=== PATIENT | female | born 1975 | race Two or more races ===

== ENCOUNTER 2017-04-07 12:01 | Inpatient (IN) | payer SELFPAY ==
[~2017-04-07] VITALS: Ht 149.9 cm; Wt 56.7 kg
--- NOTE | 2017-04-07 12:38 | NUR ---
PT BIB SELF C/O SEVERE VB AND L SIDED PELVIC PAIN X3 DAYS. LMP 03/24/17. A2. DEENIES CHANCE OF . NONTENDER TO PALP. REPORTS HX OF L OVARIAN CYST. RESP EVNE ULABORED. SKIN WARM NONDIAPHORETIC. PT APPEARS IN SEVERE PAIN, GROANING AND GUARDING. IN ER BED 21.
[2017-04-07 13:00] LABS: BASOPHILS # (AUTO) 0.1 /CMM (0.0-0.2); BASOPHILS % (AUTO) 1.3 % (0.0-2.0); EOSINOPHILS # (AUTO) 0.1 /CMM (0.0-0.7); EOSINOPHILS % (AUTO) 1.9 % (0.0-6.0); HEMATOCRIT 41 % (33-45); HEMOGLOBIN 13.8 g/dL (11.5-14.8); LYMPHOCYTES # (AUTO) 2.3 /CMM (0.8-4.8); LYMPHOCYTES % (AUTO) 35.2 % (20.0-44.0); MEAN CORPUSCULAR HEMOGLOBIN 31 PG (26.0-33.0); MEAN CORPUSCULAR HGB CONC 34 g/dl (31.0-36.0); MEAN CORPUSCULAR VOLUME 90 fL (82-100); MONOCYTES # (AUTO) 0.6 /CMM (0.1-1.30); MONOCYTES % (AUTO) 8.9 % (2.0-12.0); NEUTROPHILS # (AUTO) 3.3 /CMM (1.8-8.9); NEUTROPHILS % (AUTO) 52.7 % (43.0-81.0); PLATELET COUNT (AUTO) 296 /CMM (150-450); RDW COEFFICIENT OF VARIATION 12.8 (11.5-15.0); RED BLOOD CELL COUNT(AUTO) 4.53 MIL/uL (4.0-5.2); WHITE BLOOD COUNT (AUTO) 6.4 K/uL (4.3-11.0)
[2017-04-07] MEDS ORDERED: ONDANSETRON HCL/PF 4 MG/2 ML VIAL IVP ONE ×2 (13:00→17:00)
[2017-04-07] MEDS ORDERED: MORPHINE SULFATE INJ 2 MG/ML DISP.SYRIN IV ONE (13:00)
[2017-04-07] MEDS ORDERED: IV NS 0.9% 1,000 ML BAG IV ONE (13:00)
--- NOTE | 2017-04-07 13:05 | NUR ---
US TECH AT BEDSIDE
[2017-04-07] MEDS ORDERED: MORPHINE SULFATE INJ 4 MG/ML DISP.SYRIN ONE (13:10)
[2017-04-07] MEDS ORDERED: IV SET PRIMARY 1 EA INFUS.SET MC ONE ×2 (13:10→14:34)
[2017-04-07] MEDS ORDERED: ONDANSETRON HCL/PF 4 MG/2 ML VIAL ONE ×2 (13:10→15:59)
[2017-04-07] MEDS ORDERED: IV NS 0.9% 1,000 ML ONE (13:10)
[2017-04-07 13:18] LABS: CALCIUM, SERUM 8.5 mg/dL (8.5-10.1); CREATININE 0.6 mg/dL (0.6-1.3); POTASSIUM 3.7 mmol/L (3.5-5.1)
[2017-04-07 13:29] LABS: INR 0.92 (0.87-1.13); PROTHROMBIN TIME 9.6 SECS (9.5-12.7)
[2017-04-07 13:32] LABS: APPEARANCE,URINE TURBID (CLEAR); BILIRUBIN,URINE NEGATIVE (NEGATIVE); BLOOD, URINE 3+ Ery/uL (NEGATIVE); COLOR,URINE RED (YELLOW); KETONES,URINE 1+ (NEGATIVE); LEUKOCYTE ESTERASE ,URINE 2+ (NEGATIVE); NITRITE, URINE POSITIVE (NEGATIVE); PH,URINE 6.5 (5.0-8.0); PROTEIN,URINE 3+ mg/dl (NEGATIVE); UGLUCOSE 1+ mg/dL (NEGATIVE)
[2017-04-07 13:40] LABS: RBC,URINE TOO NUMEROUS TO COUN /HPF (0-2)
[2017-04-07 13:41] LABS: ADD URINE CULTURE YES; BACTERIA,URINE Rare /HPF (None Seen); SQUAMOUS EPITHELIAL CELL,UR Few /HPF (None Seen)
[2017-04-07] MEDS ORDERED: CEFTRIAXONE 1GM BAG (ER ONLY) 1 GM/50 ML PIGGYBACK IV ONE (14:00)
[2017-04-07] MEDS ORDERED: HYDROMORPHONE 1 MG/1 ML DISP.SYRIN ONE ×2 (14:03→15:59)
--- NOTE | 2017-04-07 14:12 | NUR ---
PT APPEARS IN SEVERE PAIN, MOANING AND CRYING, GUARDING. ARCHITECTURAL DESIGN LECTURER NOTIFIED. ORDER FOR DILAUDID 0.5MG IVP RECEIVED AND ADMINISTERED.
--- NOTE | 2017-04-07 14:18 | NUR ---
NO AT BEDSIDE FOR PELVIC EXAM
[2017-04-07] MEDS ORDERED: METRONIDAZOLE 500 MG TABLET PO ONE (14:30)
[2017-04-07] MEDS ORDERED: HYDROMORPHONE 1 MG/1 ML DISP.SYRIN IV ONE ×2 (14:30→16:00)
[2017-04-07] MEDS ORDERED: AZITHROMYCIN 250 MG TABLET PO ONE (14:30)
[2017-04-07] MEDS ORDERED: METRONIDAZOLE 500 MG TABLET ONE (14:33)
[2017-04-07] MEDS ORDERED: AZITHROMYCIN 250 MG TABLET ONE (14:33)
[2017-04-07] MEDS ORDERED: CEFTRIAXONE 1GM BAG (ER ONLY) 50 ML IV ONE (14:34)
[2017-04-07] MEDS ORDERED: KETOROLAC TROMETHAMINE INJ 30 MG/ML VIAL ONE (14:34)
[2017-04-07 14:57] LABS: HEMOGLOBIN 12.5 g/dL (11.5-14.8)
[2017-04-07] MEDS ORDERED: KETOROLAC TROMETHAMINE INJ 30 MG/ML VIAL IV ONE (15:00)
--- NOTE | 2017-04-07 15:04 | NUR ---
PT TRANSPORTED TO CT IN STABLE CONDITION
--- NOTE | 2017-04-07 15:19 | NUR ---
PT IS NOT A RHOGAM CANDIDATE PER LAB
--- NOTE | 2017-04-07 15:49 | NUR ---
CALLED NURSING SUP. FOR MS BED
--- NOTE | 2017-04-07 15:50 | NUR ---
EPIC PAGED, JUTE BAG CLIPPER
[2017-04-07] MEDS ORDERED: IBUP-51 PO (15:54)
[2017-04-07] MEDS ORDERED: ACET-868 PO (15:54)
[2017-04-07] MEDS ORDERED: LORAZEPAM 1 MG TABLET ONE (15:59)
[2017-04-07] MEDS ORDERED: LORAZEPAM 1 MG TABLET PO ONE (16:00)
--- NOTE | 2017-04-07 16:00 | NUR ---
PT APPEARS IN SEVERE PAIN AGAIN, CRYING, GUARDING, AND RESTLESS. METAL GRINDER NOTIFIED.
--- NOTE | 2017-04-07 16:34 | NUR ---
REPORT GIVEN TO MS RN FOR ADMISSION
[2017-04-07] MEDS ORDERED: IV SET PRIMARY PUMP SET 1 EA INFUS.SET MC ONE ×2 (16:42→18:02)
[2017-04-07] MEDS ORDERED: PIPERACILLIN /TAZOBACTAM 3.375 G VIAL IV ONE (16:42)
--- NOTE | 2017-04-07 16:57 | NUR ---
PT TRANSPORTED TO 320 IN STABLE CONDITION. REPROTS ADEQUATE PAIN RELIEF WITH DILAUDID ORDERED.
--- NOTE | 2017-04-07 17:05 | NUR ---
EAR NOSE THROAT SURGEON NOTES RECEIVED PATIENT FROM E.R. DEPARTMENT VIA [facility], PATIENT ALERT AND ORIENTED, ABLE TO AMBULATE, SLOWLY BUT WITH STEADY GAIT, PATIENT COMPLAINED OF PAIN AFTER AMBULATION, OBSERVED WITH EPISODE OF VOMITING X1, REFUSES ZOFRAN AT THIS TIME, NEEDS ATTENDED AND MET, PLACED ON TELE MONITOR, PLACED IN BED IN COMFORTABLE POSITION. CALL LIGHT WITHIN REACH, WILL CONTINUE TO MONITOR.
[2017-04-07 17:30] VITALS: BP 119/83
[2017-04-07] MEDS ORDERED: ONDANSETRON HCL/PF 4 MG/2 ML VIAL IVP PRN (17:30)
[2017-04-07] MEDS ORDERED: ZOLPIDEM TARTRATE 5 MG TABLET PO PRN (17:30)
[2017-04-07] MEDS ORDERED: MAGNESIUM HYDROXIDE 30 ML UDC PO PRN (17:30)
[2017-04-07] MEDS ORDERED: KETOROLAC TROMETHAMINE INJ 30 MG/ML VIAL IM PRN (17:30)
[2017-04-07] MEDS ORDERED: MAG HYDROX/AL HYDROX/SIMETH 30 ML UDC PO PRN (17:30)
[2017-04-07] MEDS ORDERED: Z GUARD REMEDY 2 OZ OINT TP PRN (17:30)
[2017-04-07] MEDS ORDERED: PIPERACILLIN /TAZOBACTAM 3.375 G in IV D5W 50 ML IV ONE (18:00)
[2017-04-07] MEDS ORDERED: PIPERACILLIN /TAZOBACTAM 4.5 G in IV D5W 50 ML IV SCH (18:00)
[2017-04-07] MEDS: IV NS 0.9% 1,000 ML IV PRN (18:07)
[2017-04-07] MEDS: HYDROMORPHONE INJ 2 MG/ML DISP.SYRIN IV PRN (18:09)
[2017-04-07] MEDS: ENOXAPARIN SODIUM 40 MG/0.4 ML DISP.SYRIN SQ SCH (18:26)
--- NOTE | 2017-04-07 18:43 | NUR ---
GLASS OR MIRROR INSPECTOR NOTES DILAUDID 1MG WASTED, WITNESSED BY ANOTHER NURSE JAS.
--- NOTE | 2017-04-07 19:29 | NUR ---
RESEARCH PROFESSOR OF BIOSTATISTICS NOTES PATIENT TELE MONITOR SHOWS NSR 70S, INTERMITTENTLY SLEEPING, NO S/SX OF PAIN, BREATHING EVEN AND UNLABORED, NO SOB, NEEDS ATTENDED AND MET, CALL LIGHT WITHIN REACH, FAMILY AT BEDSIDE, ABLE TO TOLERATE DINNER OF FULL LIQUIDS, ASSESSMENT COMPLETED, SKIN INTACT, IV ON RIGHT AC PATENT AND INTACT, NS INFUSING, CALL LIGHT WITHIN REACH, WILL CONTINUE TO MONITOR.
--- NOTE | 2017-04-07 19:30 | NUR ---
INFORMATION SECURITY RISK ANALYST NOTE: PATIENT RESTING IN BED, NO ACUTE DISTRESS NOTED, FAMILY AT BEDSIDE. BREATHING EVEN AND UNLABORED, NO SOB NOTED. IV TO RAC IN PLACE, INFUSING NS AT 75 ML/HR. PATIENT DENIES NAUSEA/VOMITING AT THIS TIME. BED LOCKED AND IN LOWEST POSITION, CALL LIGHT IN REACH. WILL CONTINUE TO MONITOR.
[2017-04-07 20:00] VITALS: BP 108/68
[2017-04-08] MEDS ORDERED: SECONDARY IV SET 1 EA INFUS.SET MC ONE (00:25)
[2017-04-08] MEDS: PIPERACILLIN /TAZOBACTAM 3.375 G in IV D5W 50 ML IV SCH ×5 (00:34→23:16)
--- NOTE | 2017-04-08 01:00 | NUR ---
WALL TAPER HELPER NOTE: REPORT GIVEN TO JUAN DIEGO VIERA FOR CONTINUE OF CARE. PATIENT SLEEPING IN BED, NO ACUTE DISTRESS NOTED. BED LOCKED AND IN LOWEST POSITION, CALL LIGHT IN REACH.
--- NOTE | 2017-04-08 01:03 | NUR ---
MELTING OPERATOR NOTES RECEIVED PT IN BED, ASLEEP AT THIS TIME, AROUSES EASILY , A/O X 4. NO DISTRESS, NO SOB AT THIS TIME. IV SITE ON RAC INTACT AND PATENT, IVF INFUSING WELL. ALL NEEDS ATTENDED. DENIES ANY PAIN OR DISCOMFORT. SAFETY PRECAUTIONS OBSERVED. CALL LIGHT WITHIN REACH . WILL CONT TO MONITOR.
[2017-04-08 04:06] VITALS: BP 123/90
[2017-04-08] MEDS: HYDROMORPHONE INJ 2 MG/ML DISP.SYRIN IV PRN ×2 (04:41→08:52)
--- NOTE | 2017-04-08 06:44 | NUR ---
TUNNEL HEADING INSPECTOR NOTES PT IN BED, ASLEEP AT THIS TIME, AROUSES EASILY , A/O X 4. NO DISTRESS, NO SOB AT THIS TIME. IV SITE ON RAC INTACT AND PATENT, IVF INFUSING WELL. AMBULATORY. ALL NEEDS ATTENDED. DENIES ANY PAIN OR DISCOMFORT AT THIS TIME. SAFETY PRECAUTIONS OBSERVED. CALL LIGHT WITHIN REACH . WILL ENDORSE TO NEXT SHIFT FOR FERNIE.
[2017-04-08 06:52] VITALS: BP 113/85
[2017-04-08 07:21] LABS: BASOPHILS % (AUTO) 0.6 % (0.0-2.0); EOSINOPHILS # (AUTO) 0.1 /CMM (0.0-0.7); EOSINOPHILS % (AUTO) 1.2 % (0.0-6.0); HEMATOCRIT 37 % (33-45); HEMOGLOBIN 12.4 g/dL (11.5-14.8); LYMPHOCYTES % (AUTO) 34.3 % (20.0-44.0); MEAN CORPUSCULAR HEMOGLOBIN 30 PG (26.0-33.0); MEAN CORPUSCULAR HGB CONC 34 g/dl (31.0-36.0); MEAN CORPUSCULAR VOLUME 90 fL (82-100); MONOCYTES # (AUTO) 0.5 /CMM (0.1-1.30); NEUTROPHILS # (AUTO) 3.3 /CMM (1.8-8.9); NEUTROPHILS % (AUTO) 55.9 % (43.0-81.0); PLATELET COUNT (AUTO) 271 /CMM (150-450); RDW COEFFICIENT OF VARIATION 13.9 (11.5-15.0); RED BLOOD CELL COUNT(AUTO) 4.11 MIL/uL (4.0-5.2); WHITE BLOOD COUNT (AUTO) 5.8 K/uL (4.3-11.0)
--- NOTE | 2017-04-08 07:24 | NUR ---
MANAGED CARE MANAGER NOTES PATIENT IN BED, SLEEPING BUT EASILY AROUSABLE, NO S/SX OF DISTRESS OR PAIN AT THIS TIME, BREATHING EVEN AND UNLABORED, NEEDS ATTENDED AND MET, IVF INFUSING AND TOLERATING WELL, SAFETY MEASURES IN PLACED, CALL LIGHT WITHIN REACH, WILL CONTINUE TO MONITOR.
[2017-04-08 07:35] LABS: CALCIUM, SERUM 8.1 mg/dL (8.5-10.1); CREATININE 0.8 mg/dL (0.6-1.3); MAGNESIUM 1.9 mg/dL (1.8-2.4); PHOSPHORUS 3.4 mg/dL (2.5-4.9); POTASSIUM 3.9 mmol/L (3.5-5.1)
[2017-04-08] MEDS: PANTOPRAZOLE 40 MG TABLET.DR PO SCH (08:00)
[2017-04-08 09:00] VITALS: BP 103/71
[2017-04-08] MEDS: IV NS 0.9% 1,000 ML IV PRN (10:53)
--- NOTE | 2017-04-08 12:00 | NUR ---
RN MS NOTES DR. CARLIN MADE AWARE THAT PATIENT STILL HAS EPISODES OF NAUSEA AND VOMITING, EVEN AFTER RECEIVING ZOFRAN, ALSO MENTIONED THAT THE PATIENT STATED PAIN MEDICATION IS INEFFECTIVE, HOWEVER MOST RECENT BLOOD PRESSURE IS 103/71, PER MD, GIVE NORCO FOR NOW, RECEIVED ORDER TO CHANGE FREQUENCY OF ZOFRAN. ORDER NOTED AND CARRIED OUT.
[2017-04-08] MEDS: HYDROCODONE/APAP 5/325MG 1 EACH TABLET PO PRN (13:31)
[2017-04-08] MEDS ORDERED: ONDANSETRON HCL/PF 4 MG/2 ML VIAL IV PRN (14:30)
[2017-04-08 16:00] VITALS: BP 137/88
[2017-04-08] MEDS: ACETAMINOPHEN 325 MG TABLET PO PRN ×2 (16:08→23:16)
--- NOTE | 2017-04-08 18:46 | NUR ---
RN MS NOTES PATIENT IN BED, ALERT AND ORIENTED, NO DISTRESS NOTED, PAIN ABLE TO TOLERATE AT THIS TIME, NO EPISODE OF NAUSEA OR VOMITING AT THIS TIME, IVF INFUSING AND TOLERATING WELL, ALL DUE MEDS GIVEN ORDERED, FAMILY MEMBER AT BEDSIDE, SAFETY MEASURES IN PLACED, CALL LIGHT WITHIN REACH, WILL ENDORSE TO DISASTER RECOVERY MANAGER FOR FERNIE.
--- NOTE | 2017-04-08 19:30 | NUR ---
RN NOTES RECEIVED PT. AWAKE ON BED, A/OX4, DENIES PAIN, NO SOB, CALL LIGHT WITHIN REACH, SIDERAILS UPX2 CONTINUE TO MONITOR
[2017-04-08 20:00] VITALS: BP 136/86
[2017-04-08] MEDS: ENOXAPARIN SODIUM 40 MG/0.4 ML DISP.SYRIN SQ SCH (21:21)
--- NOTE | 2017-04-08 23:20 | NUR ---
RN NOTES COMPLAINED OF HEADACHE-TYLENOL 650MG PO GIVEN ORDERED
[2017-04-09] MEDS: HYDROCODONE/APAP 5/325MG 1 EACH TABLET PO PRN ×2 (03:15→08:13)
[2017-04-09] MEDS: IV NS 0.9% 1,000 ML IV PRN (03:16)
--- NOTE | 2017-04-09 03:32 | NUR ---
RN NOTES COMPLAINED OF ABDOMINAL PAIN 05/29- NORCO 5/325 MG PO GIVEN ORDERED, V/S STABLE
[2017-04-09] MEDS: PIPERACILLIN /TAZOBACTAM 3.375 G in IV D5W 50 ML IV SCH ×2 (06:02→12:20)
--- NOTE | 2017-04-09 06:46 | NUR ---
RN NOTES SLEEPING BUT AROUSABLE, MORNING CARE RENDERED, DENIES PAIN,NO SOB, CALL LIGHT WITHIN REACH, PT. NEEDS ATTENDED
[2017-04-09] MEDS: PANTOPRAZOLE 40 MG TABLET.DR PO SCH (07:57)
[2017-04-09 08:00] VITALS: BP 138/85
--- NOTE | 2017-04-09 08:16 | NUR ---
[id number]: GAVE 5/325 MG PO DUE TO 8/10 HEADACHE UPON PT REQUEST AND WILL CONTINUE TO MONITOR FOR EFFECTIVENESS OF MEDICATION.
[2017-04-09] MEDS: HYDROMORPHONE INJ 2 MG/ML DISP.SYRIN IV PRN (09:54)
--- NOTE | 2017-04-09 09:54 | NUR ---
[id number]: GAVE DILAUDID 1 MG PO 06/29 FOR HEADACHE UPON PT REQUEST AND WILL CONTINUE TO MONITOR FOR EFFECTIVENESS OF MEDICATION
[2017-04-09 16:00] VITALS: BP 129/75
--- NOTE | 2017-04-09 17:00 | NUR ---
[id number]: PT IS 41 YEARS OLD FEMALE DISCHARGE TO HOME ACCOMPANIED BY FRIEND GODWIN. PT IS STABLE FOR DISCHARGE. NO ACUTE DISTRESS NOTED AT THIS TIME. NO COMPLAIN OF PAIN OR DISCOMFORT. BELONGINGS RETURNED TO PT. ED KING AWARE OF DISCHARGE. INFORMED PT TO FOLLOW UP WITH OWN PHYSICIAN. PT LEFT VIA PRIVATE CAR.
[2017-04-11 06:19] LABS: *NEISSERIA GONORRHOEAE NAA Negative (Negative); CHLAMYDIA TRACHOMATIS NAA Negative (Negative)
== END 2017-04-09 16:30 | disposition home or self-care (01) | DRG 758 ==
LOC: ER 12:05 → MED 16:20 → TELE 18:54 → MED 04-08 13:10
PROVIDERS: ADMIT Internal Medicine; ATTEND Internal Medicine
DX: N73.0 Acute parametritis and pelvic cellulitis (principal); N39.0 Urinary tract infection, site not specified; K57.32 Diverticulitis of large intestine without perforation or abscess without bleeding; I10 Essential (primary) hypertension; K21.9 Gastro-esophageal reflux disease without esophagitis; N20.0 Calculus of kidney; N93.8 Other specified abnormal uterine and vaginal bleeding
CPT/HCPCS: 36415; 76856-TC; 80048-TC; 80061-TC; 81000-TC; 82962-TC; 83735-TC; 84100-TC; 84702-TC; 85025-TC; 85027-TC; 85730-TC; 87081-TC; 87086-TC; 87491; 87591; A4606; J0696; J1170; J1650; J1885; J2270; J2405; J2543; J7030; J7060; Z7610

== ENCOUNTER 2017-06-29 15:53 | Emergency (ER) | payer SELFPAY ==
[~2017-06-29] VITALS: Ht 134.6 cm; Wt 59.0 kg
[~2017-06-29 15:53] MED LIST: ACET-868 PO; IBUP-51 PO
--- NOTE | 2017-06-29 15:53 | NUR ---
LLQ pain; started her period today; + nausea and vomiting. nad noted. pt aao x4, amb with steady gait rr even and unlabored. pending md jain.
--- NOTE | 2017-06-29 16:36 | NUR ---
urine obtained sent to lab
[2017-06-29 16:55] LABS: BASOPHILS # (AUTO) 0.6 /CMM (0.0-0.2); BASOPHILS % (AUTO) 4.5 % (0.0-2.0); EOSINOPHILS # (AUTO) 0.1 /CMM (0.0-0.7); EOSINOPHILS % (AUTO) 0.6 % (0.0-6.0); HEMATOCRIT 41 % (33-45); HEMOGLOBIN 13.8 g/dL (11.5-14.8); LYMPHOCYTES # (AUTO) 2.4 /CMM (0.8-4.8); LYMPHOCYTES % (AUTO) 19.2 % (20.0-44.0); MEAN CORPUSCULAR HEMOGLOBIN 30 PG (26.0-33.0); MEAN CORPUSCULAR HGB CONC 33 g/dl (31.0-36.0); MEAN CORPUSCULAR VOLUME 91 fL (82-100); MONOCYTES # (AUTO) 0.8 /CMM (0.1-1.30); MONOCYTES % (AUTO) 6.7 % (2.0-12.0); NEUTROPHILS # (AUTO) 8.5 /CMM (1.8-8.9); PLATELET COUNT (AUTO) 311 /CMM (150-450); RDW COEFFICIENT OF VARIATION 12.6 (11.5-15.0); RED BLOOD CELL COUNT(AUTO) 4.56 MIL/uL (4.0-5.2); WHITE BLOOD COUNT (AUTO) 12.4 K/uL (4.3-11.0)
[2017-06-29] MEDS ORDERED: ONDANSETRON HCL/PF 4 MG/2 ML VIAL ONE (16:55)
[2017-06-29] MEDS ORDERED: MORPHINE SULFATE INJ 4 MG/ML DISP.SYRIN ONE (16:55)
[2017-06-29 16:56] LABS: APPEARANCE,URINE Slightly Cloudy (CLEAR); BILIRUBIN,URINE MODERATE (NEGATIVE); BLOOD, URINE Large Ery/uL (NEGATIVE); COLOR,URINE Red (YELLOW); KETONES,URINE 15 (NEGATIVE); LEUKOCYTE ESTERASE ,URINE Large (NEGATIVE); NITRITE, URINE Positive (NEGATIVE); PH,URINE 5.5 (5.0-8.0); PROTEIN,URINE >=300 mg/dl (NEGATIVE); UGLUCOSE Negative (NEGATIVE)
[2017-06-29] MEDS ORDERED: IV NS 0.9% 1,000 ML BAG IV ONE (17:00)
[2017-06-29] MEDS ORDERED: MORPHINE SULFATE INJ 2 MG/ML DISP.SYRIN IV ONE (17:00)
[2017-06-29] MEDS ORDERED: ONDANSETRON 4 MG TAB.RAPDIS PO ONE (17:00)
[2017-06-29 17:11] LABS: RBC,URINE TOO NUMEROUS TO COUN /HPF (0-2)
[2017-06-29 17:12] LABS: WBC,URINE 51-80 /HPF (0-3)
[2017-06-29 17:13] LABS: BACTERIA,URINE 1+ /HPF (None Seen); SQUAMOUS EPITHELIAL CELL,UR Moderate /HPF (None Seen)
[2017-06-29] MEDS ORDERED: ONDANSETRON HCL/PF - ER 4 MG/2 ML VIAL IV ONE (17:30)
--- NOTE | 2017-06-29 18:01 | NUR ---
ULTRASOUND AT BEDSIDE
[2017-06-29 19:07] VITALS: BP 132/81
== END 2017-06-29 19:08 | disposition home or self-care (01) ==
LOC: ER 15:56
DX: N92.0 Excessive and frequent menstruation with regular cycle (principal); N39.0 Urinary tract infection, site not specified; I10 Essential (primary) hypertension; E11.9 Type 2 diabetes mellitus without complications; Z98.890 Other specified postprocedural states
CPT/HCPCS: 36415; 76856; 81001; 85025; 87086; 96361; 96374; 96375; 99285; A4606; A6402; J2270; J2405 ×2; J7030 ×2; Z7610; 81000-TC